=== PATIENT | male | born 1990 | race Hispanic/Latino ===

== ENCOUNTER 2018-05-20 00:17 | Emergency (ER) | payer OTHER, SELFPAY ==
[2018-05-20] MEDS ORDERED: AMOXicillin 250 MG CAP ONE (00:34)
== END 2018-05-20 00:34 | disposition home or self-care (01) ==
LOC: BURERS 00:17
DX: J02.9 Acute pharyngitis, unspecified (principal); F41.9 Anxiety disorder, unspecified
CPT/HCPCS: 99283